=== PATIENT | female | born 2000 | race Caucasian/White ===

== ENCOUNTER 2020-01-13 11:49 | Emergency (ER) | payer MEDICAID ==
[~2020-01-13] VITALS: Ht 157.5 cm; Wt 61.4 kg
[2020-01-13 13:49] LABS: BASOPHILS # (AUTO) 0.02 x10^3/uL (0-0.1); BASOPHILS % (AUTO) 0 % (0-1); EOSINOPHILS # (AUTO) 0.08 x10^3/uL (0-0.4); EOSINOPHILS % (AUTO) 1 % (1-7); LYMPHOCYTES # (AUTO) 0.47 x10^3/uL (1-3.4); LYMPHOCYTES % (AUTO) 4 % (22-44); MD NO; MEAN CORPUSCULAR HEMOGLOBIN 30.4 pg (27.0-34.8); MEAN CORPUSCULAR HGB CONC 33.2 g/dL (32.4-35.8); MEAN CORPUSCULAR VOLUME 91.6 fL (80-100); MONOCYTES # (AUTO) 0.25 x10^3/uL (0.2-0.8); MONOCYTES % (AUTO) 2 % (2-9); NEUTROPHILS # (AUTO) 12.77 x10^3/uL (1.8-6.8); NEUTROPHILS % (AUTO) 94 % (42-75); PLATELET COUNT 252 x10^3/uL (130-400); RED BLOOD COUNT 4.63 x10^6/uL (3.82-5.3); RED CELL DISTRIBUTION WIDTH 13.6 % (9.6-15.2)
[2020-01-13 13:59] LABS: ANION GAP 12 mmol/L (5-15); CALCIUM 9.1 mg/dL (8.5-10.1); CHLORIDE 103 mmol/L (98-107)
[2020-01-13 14:19] LABS: CREATININE 0.65 mg/dL (0.55-1.02)
--- NOTE | 2020-01-13 15:32 | NUR ---
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
[2020-01-13] MEDS ORDERED: NS + 40MEQ KCL 1,000 ML IV STA (16:00)
[2020-01-13] MEDS ORDERED: POTASSIUM CHLORIDE 20 MEQ TAB.ER.PRT PO ONE (16:00)
[2020-01-13] MEDS ORDERED: NS + 40MEQ KCL 1,000 ML IV ONE ×2 (16:05→16:30)
[2020-01-13] MEDS ORDERED: ONDANSETRON 2MG/ML, 2ML ONE (16:05)
--- NOTE | 2020-01-13 16:22 | NUR ---
BREAK RN: THIS IS A 19 YO FEMALE COMING IN FOR BILATERAL LOWER QUADRANT ABD PAIN, AND N/V X2 DAYS "UNABLE TO STOP PUKING". 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 IS G=3 P=2. PT. IS PLANNING ON HAVING AN ". PATIENT C/O MILD CRAMPING AND "SPOTTING A LITTLE YESTERDAY". VSS, PIV PLACED, IVF RUNNING, MEDICATED PER EMAR. HOLDING PO POTASSIUM UNTIL NAUSEA IS GONE. SPO2 AND BP MONITORING IN PLACE. NEEDS ADDRESSED
[2020-01-13] MEDS ORDERED: ONDANSETRON 2MG/ML, 2ML IVPush ONE (16:30)
[2020-01-13] MEDS ORDERED: PLEASE ENTER ALLERGIES MC SCH (16:30)
[2020-01-13] MEDS ORDERED: SODIUM CHLORIDE FLUSH 10ML SYR IVF ONE (16:30)
--- NOTE | 2020-01-13 17:30 | NUR ---
PT REQUESTING NAUSEA MEDICATION "BECAUSE I'M ABOUT TO THROW UP". PT ALSO REQUESTING, JUICE, SANDWHICH AND WATER. PT REFUSING TO TAKE POTASSIUM UNTIL "THE MEDICATION KICKS IN" BUT STILL WANTS JUICE, WATER AND SNACKS. PT AO X 4. SKIN PWD. RESP EVEN AND UNLABORED. PT ON CONT BP AND O2 MONITORS. CALL LIGHT WITHIN REACH. WILL CONT TO MONITOR PT.
[2020-01-13] MEDS ORDERED: POTASSIUM CHLORIDE 20 MEQ TAB.ER.PRT ONE ×2 (17:35→17:36)
[2020-01-13] MEDS ORDERED: PROMETHAZINE 25 MG/ML, 1ML ONE (17:49)
[2020-01-13] MEDS ORDERED: PROMETHAZINE 25 MG/ML, 1ML IM ONE (18:00)
--- NOTE | 2020-01-13 18:20 | NUR ---
ADRIAN MANLEY WAS AT BEDSIDE FOR RECHECK/EXPLANATION OF RESULTS. PT DOZING ON PADMINI. NAD NOTED. SKIN PWD. RESP EVEN AND UNLABORED.
--- NOTE | 2020-01-13 19:10 | NUR ---
PT CURRENTLY DENIES NAUSEA. PT AO X 4. SKIN PWD. RESP EVEN AND UNLABORED. URINE SAMPLE OBTAINED AND SENT TO LAB. PT AWARE THAT WE WILL F/U WITH HER IF SHE HAS POSITIVE RESULTS. PT DENIES ANY OTHER QUESTIONS AT THIS TIME.
[2020-01-13 19:22] LABS: CULTURE INDICATED? YES; MICROSCOPIC INDICATED
[2020-01-13 19:25] VITALS: BP 106/63
== END 2020-01-13 19:28 | disposition home or self-care (01) ==
LOC: ED 18:19
DX: O21.1 Hyperemesis gravidarum with metabolic disturbance (principal); Z3A.21 21 weeks gestation of pregnancy
CPT/HCPCS: 36415; 76801; 80048; 81001; 84702; 85025; 86901; 87086; 99285; J2405; J2550; J3480